=== PATIENT | male | born 1980 | race Caucasian/White ===

== ENCOUNTER 2017-03-16 22:47 | Emergency (ER) | payer OTHER, BC ==
[~2017-03-16 22:47] MED LIST: NEXIUM40 PO; PERCOCET1 TA4 PO; PROPECIA1 MG PO; ZOFRAN4 PO
== END 2017-03-17 00:36 | disposition home or self-care (01) ==
LOC: ER 22:47
DX: M54.5 Low back pain (principal); K21.9 Gastro-esophageal reflux disease without esophagitis; Z88.2 Allergy status to sulfonamides; Z79.899 Other long term (current) drug therapy
CPT/HCPCS: 72100; 96374; 96375; 99284; J1170; J1200; J1885; J2360; J2405